=== PATIENT | female | born 1960 | race Caucasian/White ===

== ENCOUNTER 2019-06-17 21:36 | Emergency (ER) | payer MEDICAID ==
[2019-06-17] MEDS ORDERED: Sodium Chloride 0.9% 10 ML Syringe FLUSH PRN (21:40)
[2019-06-17] MEDS ORDERED: Naloxone 0.4 MG/ML SDV IVPUSH ONE (21:43)
[2019-06-17] MEDS ORDERED: Sodium Chloride 0.9% 1,000 ML IV SCH (21:45)
--- NOTE | 2019-06-17 21:54 | EDM.PDOCBH ---
ED HPI GENERAL MEDICAL PROBLEM - General Chief Complaint: Drug or Alcohol Abuse Stated Complaint: [facility] Time Seen by Provider: 06/17/19 21:40 Source of Information: Reports: EMS, Family History Limitations: Reports: Altered Mental Status - History of Present Illness INITIAL COMMENTS - FREE TEXT/NARRATIVE: The patient presents by [facility] for an overdose. She had a bad fight with her daughter chey and she drank a whole bottle of cough syrup. There is dextromethoropan and guafinicen in the cough syrup. The patient has never tried to kill herself before and her daughter does not think she was trying today to take her life. She was put on oxygen because her oxygen saturations were low. She will moan and move with a sternal rub. Her oxygen saturations are low without the oxygen. He daughter thinks she may have taken the meds a couple hours ago. Onset: Sudden Duration: Hour(s): Severity: Severe Improves with: Reports: None Worsens with: Reports: None Associated Symptoms: Denies: Nausea/Vomiting, Shortness of Breath - Related Data Allergies Allergy/AdvReac Type Severity Reaction Status Date / Time procaine [From Novocain] Allergy Tachycardia Verified 06/17/19 21:49 Home Meds: Home Meds Citalopram Hydrobromide [Celexa] 40 mg PO DAILY 06/17/19 [History] DULoxetine HCl [Cymbalta] 30 mg PO DAILY 06/17/19 [History] Levothyroxine [Synthroid] 50 mcg PO DAILY 06/17/19 [History] Lisinopril [Zestril] 40 mg PO DAILY 06/17/19 [History] buPROPion HCL [Bupropion Xl] 300 mg PO DAILY 06/17/19 [History] ED ROS GENERAL - Review of Systems Review Of Systems: Unable To Obtain Reason Not Obtained: Patient responding to painfull stimuli ED EXAM, BEHAVIORAL HEALTH - Physical Exam Exam: See Below Exam Limited By: Altered Mental Status General Appearance: Obtunded Eye Exam: Bilateral Eye: PERRL Ears: Normal External Exam Nose: Normal Inspection Head: Atraumatic, Normocephalic Neck: Normal Inspection Respiratory/Chest: No Respiratory Distress, Lungs Clear, Normal Breath Sounds Cardiovascular: Regular Rate, Rhythm, No Edema, No Murmur GI/Abdominal: Soft, Non-Tender, No Organomegaly, No Mass Extremities: Normal Inspection Neurological: Other (patient obtunded she does moan to painfull stimuli) EKG INTERPRETATION EKG Date: 06/17/19 Time: 21:59 Rhythm: NSR Rate (Beats/Min): 91 [place]: Normal P-Wave: Present QRS: Normal ST-T: Normal QT: Normal EKG Interpretation Comments: Q waves in the inferior and anterior leads COURSE, BEHAVIORAL HEALTH COMP - Course Vital Signs: Last Vital Signs Temp 96.0 F L 06/17/19 21:43 Pulse 78 06/17/19 21:43 Resp 12 06/17/19 21:43 BP 161/104 H 06/17/19 21:43 Pulse Ox 94 L 06/17/19 21:43 Orders, Labs, Meds: Active Orders 24 hr Category Date Time Status Cardiac Monitoring [RC] . DIRECTED Care 06/17/19 21:40 Active EKG Documentation Completion [RC] STAT Care 06/17/19 21:41 Active Oxygen Therapy Adult [Oxygen Therapy, ED] [RC] Care 06/17/19 21:43 Active ASDIRECTED Peripheral IV Care [RC] . DIRECTED Care 06/17/19 21:41 Active TSH [CHEM] Stat Lab 06/17/19 21:50 Received Sodium Chloride 0.9% [Normal Saline] 1,000 ml Med 06/17/19 21:45 Active IV ASDIRECTED Sodium Chloride 0.9% [Saline Flush] Med 06/17/19 21:40 Active 10 ml FLUSH ASDIRECTED PRN Peripheral IV Insertion Adult [OM.PC] Stat Oth 06/17/19 21:40 Ordered Medication Orders Sodium Chloride (Normal Saline) 1,000 mls @ 125 mls/hr IV ASDIRECTED SHARIF Last Admin: 06/17/19 21:48 Dose: 125 mls/hr Sodium Chloride (Saline Flush) 10 ml FLUSH ASDIRECTED PRN PRN Reason: Keep Vein Open Last Admin: 06/17/19 21:48 Dose: 10 ml Laboratory Tests 06/17/19 06/17/19 06/17/19 Range/Units 21:50 21:50 21:50 WBC 8.84 (3.98-10.04) K/mm3 RBC 4.11 (3.98-5.22) M/mm3 Hgb 11.8 (11.2-15.7) gm/dl Hct 36.6 (34.1-44.9) % MCV 89.1 (79.4-94.8) fl MCH 28.7 (25.6-32.2) pg MCHC 32.2 (32.2-35.5) g/dl RDW Std Deviation 41.8 (36.4-46.3) fL Plt Count 258 (182-369) K/mm3 MPV 9.2 L (9.4-12.3) fl Neut % (Auto) 78.7 H (34.0-71.1) % Lymph % (Auto) 14.4 L (19.3-51.7) % [place] % (Auto) 5.4 (4.7-12.5) % Eos % (Auto) 1.2 (0.7-5.8) Baso % (Auto) 0.1 (0.1-1.2) % Neut # (Auto) 6.95 H (1.56-6.13) K/mm3 Lymph # (Auto) 1.27 (1.18-3.74) K/mm3 [place] # (Auto) 0.48 H (0.24-0.36) K/mm3 Eos # (Auto) 0.11 (0.04-0.36) K/mm3 Baso # (Auto) 0.01 (0.01-0.08) K/mm3 Sodium 143 (136-145) mEq/L Potassium 3.3 L (3.5-5.1) mEq/L Chloride 107 (98-107) mEq/L Carbon Dioxide 27 (21-32) mEq/L Anion Gap 12.3 (5-15) BUN 14 (7-18) mg/dL Creatinine 1.7 H (0.55-1.02) mg/dL Est Cr Clr Drug Dosing 35.08 mL/min Estimated GFR (MDRD) 31 (>60) mL/min BUN/Creatinine Ratio 8.2 L (14-18) Glucose 168 H (74-106) mg/dL Calcium 8.2 L (8.5-10.1) mg/dL Total Bilirubin 0.4 (0.2-1.0) mg/dL AST 12 L (15-37) U/L ALT 19 (14-59) U/L Alkaline Phosphatase 78 (46-116) U/L Total Protein 7.1 (6.4-8.2) g/dl Albumin 3.4 (3.4-5.0) g/dl Globulin 3.7 gm/dL Albumin/Globulin Ratio 0.9 L (1-2) Salicylates 4.4 (2.8-20) mg/dL Urine Opiates Screen (LXTDMT=863) Ur Buprenorphine Scrn (CUTOFF=10) Ur Oxycodone Screen (FDN4LJ=460) Urine Methadone Screen (IXVVMV=105) Ur Propoxyphene Screen (SMLYYE=021) Acetaminophen 0 L (10-30) ug/mL Ur Barbiturates Screen (HSYAGN=548) Ur Tricyclics Screen (BBOASP=206) Ur Phencyclidine Scrn (CUTOFF=25) Ur Amphetamine Screen (EMVPZM=623) U Methamphetamines Scrn (QXFIYT=422) U Benzodiazepines Scrn (TTTTTM=811) U Cocaine Metab Screen (SBNYHA=467) U Marijuana (THC) Screen (CUTOFF=50) Ethyl Alcohol 0.00 (0.00) gm% 06/17/19 Range/Units 21:59 WBC (3.98-10.04) K/mm3 RBC (3.98-5.22) M/mm3 Hgb (11.2-15.7) gm/dl Hct (34.1-44.9) % MCV (79.4-94.8) fl MCH (25.6-32.2) pg MCHC (32.2-35.5) g/dl RDW Std Deviation (36.4-46.3) fL Plt Count (182-369) K/mm3 MPV (9.4-12.3) fl Neut % (Auto) (34.0-71.1) % Lymph % (Auto) (19.3-51.7) % [place] % (Auto) (4.7-12.5) % Eos % (Auto) (0.7-5.8) Baso % (Auto) (0.1-1.2) % Neut # (Auto) (1.56-6.13) K/mm3 Lymph # (Auto) (1.18-3.74) K/mm3 [place] # (Auto) (0.24-0.36) K/mm3 Eos # (Auto) (0.04-0.36) K/mm3 Baso # (Auto) (0.01-0.08) K/mm3 Sodium (136-145) mEq/L Potassium (3.5-5.1) mEq/L Chloride (98-107) mEq/L Carbon Dioxide (21-32) mEq/L Anion Gap (5-15) BUN (7-18) mg/dL Creatinine (0.55-1.02) mg/dL Est Cr Clr Drug Dosing mL/min Estimated GFR (MDRD) (>60) mL/min BUN/Creatinine Ratio (14-18) Glucose (74-106) mg/dL Calcium (8.5-10.1) mg/dL Total Bilirubin (0.2-1.0) mg/dL AST (15-37) U/L ALT (14-59) U/L Alkaline Phosphatase (46-116) U/L Total Protein (6.4-8.2) g/dl Albumin (3.4-5.0) g/dl Globulin gm/dL Albumin/Globulin Ratio (1-2) Salicylates (2.8-20) mg/dL Urine Opiates Screen Negative (UKDQBO=588) Ur Buprenorphine Scrn Negative (CUTOFF=10) Ur Oxycodone Screen Negative (XAJ5EK=275) Urine Methadone Screen Negative (AERQAP=065) Ur Propoxyphene Screen Negative (XGJBUA=963) Acetaminophen (10-30) ug/mL Ur Barbiturates Screen Negative (OLXXVU=081) Ur Tricyclics Screen Presumptive positive H (QCDBVP=949) Ur Phencyclidine Scrn Negative (CUTOFF=25) Ur Amphetamine Screen Negative (DRQAXS=946) U Methamphetamines Scrn Negative (SRSHVU=834) U Benzodiazepines Scrn Negative (BEXFGD=464) U Cocaine Metab Screen Negative (ZWOCQN=106) U Marijuana (THC) Screen Negative (CUTOFF=50) Ethyl Alcohol (0.00) gm% Medications Generic Name Dose Route Start Last Admin Trade Name Freq PRN Reason Stop Dose Admin Sodium Chloride 1,000 mls @ 125 mls/hr 06/17/19 21:45 06/17/19 21:48 Normal Saline IV 125 mls/hr ASDIRECTED SHARIF Administration Sodium Chloride 10 ml 06/17/19 21:40 06/17/19 21:48 Saline Flush FLUSH 10 ml ASDIRECTED PRN Administration Keep Vein Open Discontinued Medications Generic Name Dose Route Start Last Admin Trade Name Jeromy PRN Reason Stop Dose Admin Naloxone HCl 0.4 mg 06/17/19 21:43 06/17/19 21:48 Narcan IVPUSH 06/17/19 21:44 0.4 mg ONETIME ONE Administration Re-Assessment/Re-Exam: I ordered an IV NS at 125mL/hr, labs and a UDS. Poison control was contacted and they requested some narcan be given because she is more obtunded then would be expected. The narcan had no affect. Her CBC looks good. Her K was a little low at 3.3. Her creatinine is elevated at 1.7. Her GFR is low at 31. Her glucose is 168. Her salicylates and acetaminophen are negative. Her UDS is positive for trycyclics. She is not on any tricyclics but some of the depression meds she is on can cross react. Her ETOH is negative. She is currently maintaining her airway. Her daughter tells me that she has been more depressed over the past year. For about 8 month she has not gone out of the house. She did see 2 different family practice doctors but no psychiatrist. Her daughter and her got in a fight over this tonight and the patient took the meds. She will need to be admitted. We do not have any ICU beds at this time. I called [facility] in [place] and talked with Dr Moffett in the ER and he accepted the patient. He wondered if the patient needed to be admitted but she is maintaining her airway and her saturations on a couple litters. If any things changes in the mean time I would elect to intubate her. Departure - Departure Time of Disposition: 23:10 Disposition: DC/Tfer to Acute Hospital 02 Condition: Serious Clinical Impression: Suicide attempt Drug overdose, intentional Qualifiers: Encounter type: initial encounter Qualified Code(s): T50.902A - Poisoning by unspecified drugs, medicaments and biological substances, intentional self-harm , initial encounter - Discharge Information Referrals: PCP,Unknown [Primary Care Provider] - Sepsis Event Note - Evaluation Sepsis Screening Result: No Definite Risk - Focused Exam Vital Signs: Vital Signs Temp Pulse Resp BP Pulse Ox Pulse Ox 06/17/19 21:43 96.0 F L 78 12 161/104 H 94 L 94 L Date Exam was Performed: 06/17/19 Time Exam was Performed: 22:59 - My Orders Last 24 Hours: My Active Orders 06/17/19 21:40 Cardiac Monitoring [RC] . DIRECTED Sodium Chloride 0.9% [Saline Flush] 10 ml FLUSH ASDIRECTED PRN Peripheral IV Insertion Adult [OM.PC] Stat 06/17/19 21:41 EKG Documentation Completion [RC] STAT Peripheral IV Care [RC] . DIRECTED 06/17/19 21:43 Oxygen Therapy Adult [Oxygen Therapy, ED] [RC] ASDIRECTED 06/17/19 21:45 Sodium Chloride 0.9% [Normal Saline] 1,000 ml IV ASDIRECTED 06/17/19 21:50 TSH [CHEM] Stat - Assessment/Plan Last 24 Hours: My Active Orders 06/17/19 21:40 Cardiac Monitoring [RC] . DIRECTED Sodium Chloride 0.9% [Saline Flush] 10 ml FLUSH ASDIRECTED PRN Peripheral IV Insertion Adult [OM.PC] Stat 06/17/19 21:41 EKG Documentation Completion [RC] STAT Peripheral IV Care [RC] . DIRECTED 06/17/19 21:43 Oxygen Therapy Adult [Oxygen Therapy, ED] [RC] ASDIRECTED 06/17/19 21:45 Sodium Chloride 0.9% [Normal Saline] 1,000 ml IV ASDIRECTED 06/17/19 21:50 TSH [CHEM] Stat
== END 2019-06-17 23:30 ==
LOC: JD.ED 21:36
DX: T48.3X2A Poisoning by antitussives, intentional self-harm, initial encounter (principal); Z79.899 Other long term (current) drug therapy
CPT/HCPCS: 36415; 80053; 80306; 80307; 84443; 85025; 93005; 96361; 96374; 99285; J2310; J7030; 93010

== ENCOUNTER 2021-10-15 06:28 | Emergency (ER) | payer MEDICAID ==
[2021-10-15] MEDS ORDERED: Sodium Chloride 0.9% 1,000 ML IV SCH (08:15)
[2021-10-15 09:06] LABS: ESTIMATED GFR 19 mL/min (>60)
[2021-10-15] MEDS ORDERED: Iopamidol 612 MG/ML 100 ML Bottle IVPUSH ONE (09:38)
[2021-10-15] MEDS ORDERED: Sodium Chloride 0.9% 10 ML Syringe FLUSH ONE (09:38)
== END 2021-10-15 12:26 | disposition home or self-care (01) ==
LOC: JD.ED 06:28
DX: K11.8 Other diseases of salivary glands (principal); E03.9 Hypothyroidism, unspecified; I10 Essential (primary) hypertension; F17.210 Nicotine dependence, cigarettes, uncomplicated; E66.9 Obesity, unspecified; Z68.41 Body mass index [BMI] 40.0-44.9, adult; Z88.8 Allergy status to other drugs, medicaments and biological substances; Z79.899 Other long term (current) drug therapy; Z90.49 Acquired absence of other specified parts of digestive tract; Z90.710 Acquired absence of both cervix and uterus; Z20.822 Contact with and (suspected) exposure to COVID-19
CPT/HCPCS: 36415; 70491; 80053; 83735; 84443; 85007; 85027; 86140; 87635; 96360; 96361; 99283; J3490; J7030; Q9967; 99284; U0002

== ENCOUNTER 2023-05-02 12:06 | Emergency (ER) | payer MEDICAID ==
[2023-05-02] MEDS: Labetalol 100 MG/20 ML MDV IVPUSH ONE (12:48)
[2023-05-02] MEDS: HYDROmorphone 0.5 MG/0.5 ML Syringe IVPUSH ONE (12:49)
[2023-05-02] MEDS: Sodium Chloride 0.9% 10 ML Syringe FLUSH PRN (12:49)
[2023-05-02 13:06] LABS: BASOPHILS ABSOLUTE AUTO 0.1 K/mm3 (0.0-0.2); BASOPHILS PERCENT AUTO 0.5 % (0.0-1.0); EOSINOPHILS ABSOLUTE AUTO 0.1 K/mm3 (0.0-0.4); EOSINOPHILS PERCENT AUTO 1.2 % (0.0-6.0); HEMATOCRIT 31.5 % (37.0-47.0); HEMOGLOBIN 10.2 gm/dl (12.0-16.0); IMMATURE GRAN ABSOLUTE AUTO 0.04 K/mm3 (0.00-0.05); IMMATURE GRAN PERCENT AUTO 0.4 % (0.0-0.4); LYMPHOCYTES ABSOLUTE AUTO 2.4 K/mm3 (1.0-4.8); MEAN CORPUSCULAR HEMOGLOBIN 28.9 pg (28.0-32.0); MEAN CORPUSCULAR HGB CONC 32.4 g/dl (32.0-36.0); MEAN CORPUSCULAR VOLUME 89.2 fl (83.0-99.0); MEAN PLATELET VOLUME 9.4 fl (9.4-12.3); MONOCYTES ABSOLUTE AUTO 0.7 K/mm3 (0.0-0.8); MONOCYTES PERCENT AUTO 6.4 % (0.0-8.0); NEUTROPHILS ABSOLUTE AUTO 7.7 K/mm3 (1.8-7.7); NEUTROPHILS PERCENT AUTO 69.5 % (41.0-71.0); PLATELET COUNT,PLT 255 K/mm3 (150-400); RED BLOOD CELL COUNT 3.53 M/mm3 (4.10-5.30); WHITE BLOOD CELL COUNT,WBC 11.03 K/mm3 (3.9-11.3)
[2023-05-02] MEDS: Ondansetron 4 MG/2 ML SDV IVPUSH ONE (13:22)
[2023-05-02 13:41] LABS: A/G RATIO 0.9 (1-2); ALBUMIN 3.4 g/dl (3.4-5.0); BILIRUBIN TOTAL 0.2 mg/dL (0.2-1.0); BUN/CREATININE RATIO 7.4 (14-18); CALCIUM 8.7 mg/dL (8.5-10.1); EST CRCL DRUG DOSING (CG) 11.34 mL/min; MAGNESIUM 1.8 mg/dL (1.8-2.4); PROTEIN TOTAL,TP 7.2 g/dl (6.4-8.2)
[2023-05-02] MEDS: Metoclopramide 10 MG/2 ML SDV IVPUSH ONE (13:59)
[2023-05-02] MEDS: diphenhydrAMINE 50 MG/ML SDV IVPUSH ONE (13:59)
== END 2023-05-02 16:43 | disposition home or self-care (01) ==
LOC: JD.ED 12:06
DX: I12.9 Hypertensive chronic kidney disease with stage 1 through stage 4 chronic kidney disease, or unspecified chronic kidney disease (principal); N18.9 Chronic kidney disease, unspecified; R11.2 Nausea with vomiting, unspecified; E03.9 Hypothyroidism, unspecified; F17.210 Nicotine dependence, cigarettes, uncomplicated; J44.9 Chronic obstructive pulmonary disease, unspecified; E66.9 Obesity, unspecified; Z86.16 Personal history of COVID-19; Z79.899 Other long term (current) drug therapy; Z88.8 Allergy status to other drugs, medicaments and biological substances
CPT/HCPCS: 36415; 70450; 80053; 83735; 84484; 85025; 93005; 96374; 96375; 99284; J1170; J1200; J1921; J2405; J2765; J3490

== ENCOUNTER 2023-06-25 18:05 | Emergency (ER) | payer MEDICAID | END 2023-06-25 20:15 | disposition home or self-care (01) | LOC: JD.ED 18:05 | DX: M79.602 Pain in left arm (principal); I12.9 Hypertensive chronic kidney disease with stage 1 through stage 4 chronic kidney disease, or unspecified chronic kidney disease; N18.9 Chronic kidney disease, unspecified; E78.00 Pure hypercholesterolemia, unspecified; J44.9 Chronic obstructive pulmonary disease, unspecified; K21.9 Gastro-esophageal reflux disease without esophagitis; E03.9 Hypothyroidism, unspecified; E66.9 Obesity, unspecified; F17.210 Nicotine dependence, cigarettes, uncomplicated; Z68.39 Body mass index [BMI] 39.0-39.9, adult; Z88.4 Allergy status to anesthetic agent; Z88.8 Allergy status to other drugs, medicaments and biological substances; Z79.899 Other long term (current) drug therapy; Z86.19 Personal history of other infectious and parasitic diseases; Z86.16 Personal history of COVID-19; Z90.49 Acquired absence of other specified parts of digestive tract; Z99.2 Dependence on renal dialysis | CPT/HCPCS: 93971-26-LT; 93971-LT; 99282; 99283 ==

== ENCOUNTER 2024-01-31 17:02 | Emergency (ER) | payer MEDICAID ==
[2024-01-31] MEDS ORDERED: Sodium Chloride 0.9% 10 ML Syringe FLUSH PRN (17:23)
[2024-01-31 17:59] LABS: BASOPHILS PERCENT AUTO 0.3 % (0.0-1.0); EOSINOPHILS ABSOLUTE AUTO 0.1 K/mm3 (0.0-0.4); HEMATOCRIT 31.9 % (37.0-47.0); HEMOGLOBIN 10.4 gm/dl (12.0-16.0); IMMATURE GRAN ABSOLUTE AUTO 0.03 K/mm3 (0.00-0.05); IMMATURE GRAN PERCENT AUTO 0.4 % (0.0-0.4); LYMPHOCYTES ABSOLUTE AUTO 1.8 K/mm3 (1.0-4.8); LYMPHOCYTES PERCENT AUTO 23.2 % (24.0-44.0); MEAN CORPUSCULAR HEMOGLOBIN 30.5 pg (28.0-32.0); MEAN CORPUSCULAR HGB CONC 32.6 g/dl (32.0-36.0); MEAN CORPUSCULAR VOLUME 93.5 fl (83.0-99.0); MEAN PLATELET VOLUME 9.1 fl (9.4-12.3); MONOCYTES ABSOLUTE AUTO 0.6 K/mm3 (0.0-0.8); MONOCYTES PERCENT AUTO 7.1 % (0.0-8.0); NEUTROPHILS ABSOLUTE AUTO 5.3 K/mm3 (1.8-7.7); PLATELET COUNT,PLT 225 K/mm3 (150-400); RED BLOOD CELL COUNT 3.41 M/mm3 (4.10-5.30); WHITE BLOOD CELL COUNT,WBC 7.76 K/mm3 (3.9-11.3)
[2024-01-31] MEDS ORDERED: Iopamidol 612 MG/ML 100 ML Bottle IVPUSH ONE (18:02)
[2024-01-31] MEDS ORDERED: Sodium Chloride 0.9% 10 ML Syringe FLUSH ONE (18:02)
[2024-01-31 18:18] LABS: APPEARANCE,URINE CLEAR (Clear); BILIRUBIN,URINE NEGATIVE (Negative); COLOR,URINE YELLOW (Yellow); GLUCOSE,URINE NEGATIVE (Negative); KETONES,URINE NEGATIVE (Negative); LEUKOCYTE ESTERASE,URINE TRACE (Negative); NITRITE,URINE NEGATIVE (Negative); OCCULT BLOOD,URINE NEGATIVE (Negative); PH,URINE 8.5 (5.0-8.0); PROTEIN,URINE 2+ (Negative); UROBILINOGEN,URINE 0.2 (0.2-1.0)
[2024-01-31 18:23] LABS: A/G RATIO 0.9 (1-2); ALBUMIN 3.3 g/dl (3.4-5.0); ANION GAP 14.8 (5-15); BILIRUBIN TOTAL 0.6 mg/dL (0.2-1.0); BUN/CREATININE RATIO 3.8 (14-18); CALCIUM 8.8 mg/dL (8.5-10.1); EST CRCL DRUG DOSING (CG) 9.1 mL/min; POTASSIUM,K 3.8 mEq/L (3.5-5.1); PROTEIN TOTAL,TP 6.8 g/dl (6.4-8.2)
[2024-01-31 18:29] LABS: RBC,URINE 0-5 /hpf (0-5)
[2024-01-31 18:31] LABS: BACTERIA,URINE FEW /hpf (FEW); MUCUS,URINE FEW /hpf (FEW)
[2024-01-31] MEDS: predniSONE 20 MG Tab PO ONE (20:28)
== END 2024-01-31 20:43 | disposition home or self-care (01) ==
LOC: JD.ED 17:02
DX: R07.89 Other chest pain (principal); I12.9 Hypertensive chronic kidney disease with stage 1 through stage 4 chronic kidney disease, or unspecified chronic kidney disease; J44.9 Chronic obstructive pulmonary disease, unspecified; N18.9 Chronic kidney disease, unspecified; E66.9 Obesity, unspecified; F17.210 Nicotine dependence, cigarettes, uncomplicated; Z68.37 Body mass index [BMI] 37.0-37.9, adult; Z90.49 Acquired absence of other specified parts of digestive tract; Z90.710 Acquired absence of both cervix and uterus; Z79.899 Other long term (current) drug therapy; Z88.5 Allergy status to narcotic agent; Z88.8 Allergy status to other drugs, medicaments and biological substances
CPT/HCPCS: 36415; 71250; 71250-26; 74176; 74176-26; 80053; 81001; 84484; 85025; 86140; 87086; 93005; 99285; J7512